=== PATIENT | female | born 1955 | race Caucasian/White ===

== ENCOUNTER 2019-02-06 14:25 | Emergency (ER) | payer BC ==
[2019-02-06] MEDS ORDERED: SODIUM CHLORIDE 0.9% 500 ML 500 ML IV STA (14:57)
[2019-02-06] MEDS ORDERED: CLINDAMYCIN 900 MG in DEXTROSE 5% IN WATER 50 ML IVPB STA ×2 (14:58)
[2019-02-06] MEDS ORDERED: DIPH,PERTUS(ACELL)TETVAC-LF 0.5 ML VIAL IM ONE (14:59)
--- NOTE | 2019-02-06 15:07 | ED ---
General Adult HPI - General Chief complaint: Wound/Laceration Stated complaint: left hand injury/laceration Time Seen by Provider: 02/06/19 14:44 Source: patient, RN notes reviewed, old records reviewed Mode of arrival: ambulatory Limitations: no limitations - History of Present Illness Initial comments: 63-year-old female patient presents in ED for chief complaint of laceration to left hand. Patient reports that she was using a razor to cut through plastic ties when it slipped cutting the into webbing between her first and second digit on her left hand. Pt reports that the razor was new, states she cleaned wound after. Patient for that she did present to urgent care who recommended following up in ER. Last tetanus approximately 8 years ago. Patient has a flaccid penicillins. Denies any other complaints at this time. Systemic: Pt denies fatigue, fever/chills, rash. Pt denies weakness, night sweats, weight loss. Neuro: Pt denies headache, visual disturbances, syncope or pre-syncope. HEENT: Pt denies ocular discharge or irritation, otalgia, rhinorrhea, pharyngitis or notable lymphadenopathy. Cardiopulmonary: Pt denies chest pain, SOB, heart palpitations, dyspnea on exertion. Abdominal/GI: Pt denies abdominal pain, n/v/d. : Pt denies dysuria, burning w/ urination, frequency/urgency. Denies new onset urinary or bowel incontinence. MSK: Pt denies myalgia, loss of strength or function in extremities. Neuro: Pt denies new onset weakness, paresthesias. - Related Data Previous Rx's Medication Instructions Recorded Sulfamethox-Tmp 800-160Mg [Bactrim 1 tab PO Q12HR 7 Days #14 tab 02/06/19 DS 800-160 mg] Allergies Allergy/AdvReac Type Severity Reaction Status Date / Time codeine Allergy Hallucinati Verified 02/06/19 14:42 ons morphine Allergy Rash/Hives Verified 02/06/19 14:42 Penicillins Allergy Anaphylaxis Verified 02/06/19 14:42 Review of Systems ROS Statement: Those systems with pertinent positive or pertinent negative responses have been documented in the HPI. ROS Other: All systems not noted in ROS Statement are negative. Past Medical History Past Medical History: Hyperlipidemia, Thyroid Disorder History of Any Multi-Drug Resistant Organisms: None Reported Past Surgical History: No Surgical Hx Reported Past Psychological History: No Psychological Hx Reported Smoking Status: Never smoker Past Alcohol Use History: None Reported, Occasional Past Drug Use History: None Reported General Exam - General Exam Comments Initial Comments: Constitutional: NAD, AOX3, Pt has pleasant affect. HEENT: NC/AT, trachea midline, neck supple, no lymphadenopathy. Posterior pharynx non erythematous, without exudates. External ears appear normal, without discharge. Mucous membranes moist. Eyes PERRLA, EOM intact. There is no scleral icterus. No pallor noted. Cardiopulmonary: RRR, no murmurs, rubs or gallops, no JVD noted. Lungs CTAB in anterior and posterior casey. No peripheral edema. Abdominal exam: Abdomen soft and non-distended. Abdomen non-tender to palpation in all 4 quadrants. Bowel sounds active in LLQ. No hepatosplenomegaly. No ecchymosis Neuro: CN II-XII grossly intact. No nuchal rigidity. No raccon eyes, no monroy sign, no hemotympanum. No cervical spinal tenderness. MSK: 6 cm laceration into webbing between first and second digit of left hand. Patient does have full active range of motion of first and second digit. Full active ROM of all digits. Neurovascularly intact. Vigorusly irrigated. Approximated with 9 simple interrupted sutures. Neurovascularly intact after suture placement. No posterior calf tenderness bilaterally, homans sign negative bilaterally. Posterior tibialis and radial pulse +2 bilaterally. Sensation intact in upper and lower extremities. Full active ROM in upper and lower extremities, 5/5 stregnth. Limitations: no limitations Course Vital Signs 02/06/19 02/06/19 02/06/19 14:38 15:26 15:45 Temperature 98.3 F Pulse Rate 88 91 63 Respiratory 20 16 16 Rate Blood Pressure 154/84 127/64 118/64 O2 Sat by Pulse 99 98 100 Oximetry 02/06/19 02/06/19 16:06 16:55 Temperature Pulse Rate 78 73 Respiratory 16 16 Rate Blood Pressure 78/48 107/57 O2 Sat by Pulse 96 99 Oximetry Procedures - Laceration Laceration #1 Consent Obtained: verbal consent Indication: laceration Site: hand Size (cm): 6 Description: linear Depth: simple, single layer Anesthetic Used: lidocaine 1% Anesthesia Technique: local infiltration Amount (mls): 5 Pre-repair: wound explored, irrigated extensively, deep structures intact Type of Sutures: nylon Size of Sutures: 5-0 Number of Sutures: 9 Technique: simple, interrupted Patient Tolerated Procedure: well, no complications Medical Decision Making - Medical Decision Making 63-year-old female patient presents in ED for chief complaint of laceration to left hand. Patient reports that she was using a razor to cut through plastic ties when it slipped cutting the into webbing between her first and second digit on her left hand. Pt reports that the razor was new, states she cleaned wound after. Patient for that she did present to urgent care who recommended following up in ER. Last tetanus approximately 8 years ago. Patient has a flaccid penicillins. Denies any other complaints at this time. Patient vital signs stable, afebrile. Physical exam displayed: 6 cm laceration into webbing between first and second digit of left hand. Patient does have full active range of motion of first and second digit. Strength intact. Neurovascularly intact. Vigorusly irrigated. Approximated with 9 simple interrupted sutures. CBC non- impressive. Plain film did not display any acute osseous process or foreign body. Patient was discharged. He'll be advised to follow up with primary care provider. Return precautions discussed. Case discussed and patient seen by Dr. Landon. - Lab Data Result diagrams: 02/06/19 15:15 Lab Results 02/06/19 Range/Units 15:15 WBC 7.2 (3.8-10.6) k/uL RBC 4.16 (3.80-5.40) m/uL Hgb 12.4 (11.4-16.0) gm/dL Hct 37.9 (34.0-46.0) % MCV 91.2 (80.0-100.0) fL MCH 29.8 (25.0-35.0) pg MCHC 32.7 (31.0-37.0) g/dL RDW 13.0 (11.5-15.5) % Plt Count 237 (150-450) k/uL Neutrophils % 61 % Lymphocytes % 31 % Monocytes % 5 % Eosinophils % 1 % Basophils % 1 % Neutrophils # 4.4 (1.3-7.7) k/uL Lymphocytes # 2.2 (1.0-4.8) k/uL Monocytes # 0.3 (0-1.0) k/uL Eosinophils # 0.1 (0-0.7) k/uL Basophils # 0.0 (0-0.2) k/uL Disposition Clinical Impression: Laceration Disposition: HOME SELF-CARE Condition: Stable Instructions (If sedation given, give patient instructions): Laceration (ED) Additional Instructions: Patient to adhere to previously discussed treatment plan and will take medication(s) as directed. Patient to follow up with PCP in 1-2 days. Patient to return to ED if symptoms do not improve. Follow up with orthopedic consult for continued evaluation. Please return for suture removal: Hand: 7-10 days Face: 5 days Chest/abdomen: 12-14 days Extremities: 7-10 days Scalp: 7 days Eyebrow: 5-7 days Foot/sole: 12-14 days Please monitor for signs and symptoms of infection including: redness, warmth, drainage, discharge. Please return to ED if these signs or symptoms occur, new signs or symptoms develop or if condition worsens in anyway. Prescriptions: Sulfamethox-Tmp 800-160Mg [Bactrim DS 800-160 mg] 1 tab PO Q12HR 7 Days #14 tab Is patient prescribed a controlled substance at d/c from ED?: No Referrals: Nonstaff,Physician [Primary Care Provider] - 1-2 days Jason Solo DO [Medical Doctor] - 1-2 days
[2019-02-06 15:29] VITALS: RESP 16
[2019-02-06] MEDS ORDERED: ONDANSETRON ODT 4 MG TAB PO STA (15:39)
--- NOTE | 2019-02-06 15:49 | XR ---
EXAMINATION TYPE: XR hand complete LT DATE OF EXAM: 02/06/2019 CLINICAL HISTORY: Large left laceration of the left hand. TECHNIQUE: Frontal, lateral and oblique images of the left hand are obtained. COMPARISON: None. FINDINGS: There is no acute fracture/dislocation evident in the left hand. Soft tissue swelling and hyperdensity is seen of the left thenar eminence from known soft tissue laceration. Curvilinear hyper density may relate to packing material or overlying gauze. No osseous laceration. Mild to moderate de generative changes of the first carpometacarpal joint and distal interphalangeal joints. Carpal carpa l interspaces are maintained. Radiocarpal joint narrowing is also seen.. IMPRESSION: Extensive soft tissue swelling of the left thenar eminence with curvilinear radiopaque de nsities overlying that may relate to cause or packing. Alternatively radiopaque foreign bodies are po ssible. Correlate with physical exam findings. No osseous laceration or acute fracture of the left iverson nd.
[2019-02-06] MEDS ORDERED: SODIUM CHLORIDE 0.9% 1,000 ML IV STA (16:02)
[2019-02-06 16:27] LABS: Basophils % (A) 1 %; Eosinophils # (A) 0.1 k/uL (0-0.7); Eosinophils % (A) 1 %; HCT 37.9 % (34.0-46.0); HGB 12.4 gm/dL (11.4-16.0); Lymphocytes # (A) 2.2 k/uL (1.0-4.8); Lymphocytes % (A) 31 %; MCH 29.8 pg (25.0-35.0); MCHC 32.7 g/dL (31.0-37.0); MCV 91.2 fL (80.0-100.0); Mean Platelet Volume 7.1; Monocytes # (A) 0.3 k/uL (0-1.0); Monocytes % (A) 5 %; Neutrophils # (A) 4.4 k/uL (1.3-7.7); Neutrophils % (A) 61 %; Platelet Count 237 k/uL (150-450); RBC 4.16 m/uL (3.80-5.40); WBC 7.2 k/uL (3.8-10.6)
--- NOTE | 2019-02-06 17:08 | XR ---
EXAMINATION TYPE: XR hand complete LT DATE OF EXAM: 02/06/2019 COMPARISON: Today HISTORY: Laceration TECHNIQUE: 3 views FINDINGS: There is moderate osteoarthritis at the first carpometacarpal joint. There is soft tissue s welling between first and second metacarpals. I see no evidence of radiopaque foreign body. IMPRESSION: Soft tissue swelling. Osteoarthritis. No foreign body seen.
[2019-02-06] MEDS ORDERED: SULFAMETH-TMP DS STARTER PACK 2 TAB BTL PO STA (17:22)
[2019-02-06 18:00] VITALS: BP 104/67; PULSE 72; TEMP 97.9
== END 2019-02-06 17:55 | disposition home or self-care (01) ==
LOC: EC 14:25
DX: S61.412A Laceration without foreign body of left hand, initial encounter (principal); Z23 Encounter for immunization; Z88.0 Allergy status to penicillin; Z88.5 Allergy status to narcotic agent; W27.8XXA Contact with other nonpowered hand tool, initial encounter
CPT/HCPCS: 12002; 36415; 85025; 90471; 90715; 96360; 96361; 99283